=== PATIENT | female | born 1985 | race Caucasian/White ===

== ENCOUNTER 2018-12-09 14:43 | Emergency (ER) | payer OTHER ==
[~2018-12-09] VITALS: Ht 172.7 cm; Wt 52.2 kg
[~2018-12-09 14:43] MED LIST: BCP; HYDROCODONE-AP1 EAC6 PO; KEFLEX500 MG PO; NORCO 5-325 TA1 EACH PO; TRINATE TABLET1 TAB PO; ZOFRAN ODT4 MG PO
[2018-12-09 15:01] VITALS: BP 106/66
== END 2018-12-09 16:01 | disposition home or self-care (01) ==
LOC: M.ERS 14:43
DX: S16.1XXA Strain of muscle, fascia and tendon at neck level, initial encounter (principal); Z88.1 Allergy status to other antibiotic agents; X58.XXXA Exposure to other specified factors, initial encounter; Y93.89 Activity, other specified; Y92.89 Other specified places as the place of occurrence of the external cause; Y99.8 Other external cause status

== ENCOUNTER 2019-07-20 22:27 | Emergency (ER) | payer OTHER ==
[~2019-07-20] VITALS: Ht 170.2 cm; Wt 59.0 kg
[2019-07-20 22:53] LABS: INFLUENZA A ANTIGEN Negative (Negative)
[2019-07-21] MEDS ORDERED: TESSALON PERLE100 MG PO (00:03)
[2019-07-21] MEDS ORDERED: TYLENOL WITH CO1 TA1 PO (00:03)
[2019-07-21] MEDS ORDERED: PROMETHAZI6.25 MG/5 PO (00:03)
[2019-07-21 00:23] VITALS: BP 110/65
== END 2019-07-21 00:24 | disposition home or self-care (01) ==
LOC: M.ERS 22:27
PROVIDERS: Physician Assistant
DX: J10.1 Influenza due to other identified influenza virus with other respiratory manifestations (principal); Z88.1 Allergy status to other antibiotic agents; Z98.890 Other specified postprocedural states

== ENCOUNTER 2020-04-15 20:13 | Emergency (ER) | payer OTHER ==
[~2020-04-15] VITALS: Ht 170.2 cm; Wt 63.5 kg
[~2020-04-15 20:13] MED LIST changes: +PROMETHAZI6.25 MG/5 PO; +TESSALON PERLE100 MG PO; +TYLENOL WITH CO1 TA1 PO
[2020-04-15] MEDS ORDERED: LORCET 5-325 M1 EACH PO (21:50)
[2020-04-15] MEDS ORDERED: FLEXERIL PO (21:50)
[2020-04-15 22:15] VITALS: BP 118/88
== END 2020-04-15 22:02 | disposition home or self-care (01) ==
LOC: M.ERS 20:13
DX: S16.1XXA Strain of muscle, fascia and tendon at neck level, initial encounter (principal); F17.210 Nicotine dependence, cigarettes, uncomplicated; Z88.1 Allergy status to other antibiotic agents; W01.0XXA Fall on same level from slipping, tripping and stumbling without subsequent striking against object, initial encounter; Y93.89 Activity, other specified; Y92.89 Other specified places as the place of occurrence of the external cause; Y99.8 Other external cause status